=== PATIENT | female | born 1970 | race Asian ===

== ENCOUNTER 2018-04-30 11:11 | Emergency (ER) | payer OTHER ==
[2018-04-30 11:22] VITALS: BP 132/63
[2018-04-30] MEDS ORDERED: TRAMADOL HCL 50 MG TABLET PO ONE (11:36)
--- NOTE | 2018-04-30 11:41 | ER Document Report ---
ED General - General Chief Complaint: Abdominal Pain Stated Complaint: ABDOMEN PAIN Time Seen by Provider: 04/30/18 11:36 Notes: 48-year-old female here with complaints of continued monthly menstrual cramps and the pain that has now been ongoing for the past 7 days. She reports that for the past few years, she has been having severe pain every month when she has her menstrual cycle. This month, she started her menstrual cycle 7 days ago and has been having the pain. She has not tried anything for the pain. Pain is not worse with anything in particular. She does not have any fevers chills nausea vomiting dysuria vaginal discharge frequency hesitancy back/flank pain. She reports that it feels like her typical monthly pain and has been seen by her doctor who told her she had endometriosis. TRAVEL OUTSIDE OF THE [place] IN LAST 30 DAYS: No - Related Data Allergies/Adverse Reactions: No Known Allergies Allergy (Verified 04/30/18 11:37) Past Medical History - Social History Smoking Status: Unknown if Ever Smoked Family History: Reviewed & Not Pertinent Review of Systems - Review of Systems Notes: See history of present illness for pertinent positive review of systems; otherwise all review of systems have been reviewed and are negative Physical Exam - Vital signs Vitals: Temp Pulse Resp BP Pulse Ox 98.3 F 90 16 132/63 H 100 04/30/18 11:20 04/30/18 11:20 04/30/18 11:20 04/30/18 11:20 04/30/18 11:20 - Notes Notes: PHYSICAL EXAMINATION: GENERAL: Well-appearing and in no acute distress. HEAD: Atraumatic, normocephalic. EYES: Pupils equal round and reactive to light, extraocular movements intact, sclera anicteric, conjunctiva are normal. ENT: nares patent, oropharynx clear without exudates. Moist mucous membranes. NECK: Normal range of motion, supple without lymphadenopathy LUNGS: CTAB and equal. No wheezes rales or rhonchi. HEART: Regular rate and rhythm without murmurs ABDOMEN: Soft, minimal suprapubic tenderness. No facial grimacing/wincing upon palpation. No guarding, no rebound or other peritoneal signs EXTREMITIES: Normal range of motion, no pitting edema. No cyanosis. NEUROLOGICAL: Cranial nerves grossly intact. Normal sensory/motor exams. PSYCH: Normal mood, normal affect. SKIN: Warm, Dry, normal turgor, no rashes or lesions noted Course - Re-evaluation Re-evalutation: 04/30/18 11:40 MEDICAL DECISION MAKING: Concern for acute on chronic menstrual pains likely due to endometriosis Pelvic exam deferred as I do not feel it would be of much benefit given the ongoing chronic nature of symptoms Also she reports her symptoms are typical and are unchanged from previous episodes Will dose of tramadol here and prescription for same Patient understands and agrees to the plan of care - Vital Signs Vital signs: Temp Pulse Resp BP Pulse Ox 98.3 F 90 16 132/63 H 100 04/30/18 11:20 04/30/18 11:20 04/30/18 11:20 04/30/18 11:20 04/30/18 11:20 Discharge - Discharge Clinical Impression: Chronic suprapubic pain Condition: Good Disposition: HOME, SELF-CARE Additional Instructions: You were seen in the emergency department at [facility]. Use the prescribed pain medication as needed for your pain. If you were given any sedating medications, such as tramadol, be sure not to operate heavy machinery ( example - driving) and be sure you are not too sedated to walk appropriately. Please followup with your primary [facility]PER[employer] physician in the next few days for further management/evaluation. Please return to the emergency department for worsening of symptoms or any symptom that you deem to be concerning or life- threatening. Thank you for allowing us to be part of your care. Prescriptions: Tramadol HCl 50 mg PO TIDP PRN #10 tablet PRN Reason: Referrals: KILLIAN GONZALEZ, JOB SERVICE CONSULTANT-C [Primary Care Provider] - Follow up in 3-5 days
== END 2018-04-30 11:54 | disposition home or self-care (01) ==
LOC: ER 11:11
DX: G89.29 Other chronic pain (principal); R10.30 Lower abdominal pain, unspecified; N94.6 Dysmenorrhea, unspecified
CPT/HCPCS: 99283

== ENCOUNTER → 2018-06-24 | Outpatient (CLI) | payer OTHER ==
[2018-06-24 15:54] LABS: ABSOLUTE EOSINOPHILS # (AUTO) 0.1 10^3/uL (0.0-0.6); ABSOLUTE LYMPHOCYTES (AUTO) 1.7 10^3/uL (0.5-4.7); ABSOLUTE MONOCYTES (AUTO) 0.4 10^3/uL (0.1-1.4); ABSOLUTE NEUT (AUTO) 4.8 10^3/uL (1.7-8.2); BASOPHILS % (AUTO) 0.2 % (0-2); EOSINOPHILS % (AUTO) 1.9 % (0-6); HEMATOCRIT 38.9 % (36.0-47.0); HEMOGLOBIN 12.4 g/dL (12.0-15.5); MEAN CORPUSCULAR HEMOGLOBIN 23.5 pg (27.0-33.4); MEAN CORPUSCULAR VOLUME 73 fl (80-97); MONOCYTES % (AUTO) 5.6 % (3-13); PLATELET COUNT 340 10^3/uL (150-450); RED CELL DISTRIBUTION WIDTH 21.9 % (11.5-14.0); SEGMENTED NEUTROPHILS % (AUTO) 68.3 % (42-78); TOTAL CELLS COUNTED % (AUTO) 100 %
[2018-06-24 16:16] LABS: BLOOD UREA NITROGEN 13 mg/dL (7-20)
== END ==
LOC: OD 15:12
PROVIDERS: ATTEND Radiology Radiation Oncology
DX: C54.1 Malignant neoplasm of endometrium (principal); C77.5 Secondary and unspecified malignant neoplasm of intrapelvic lymph nodes
CPT/HCPCS: 36415; 82565; 84520; 85025

== ENCOUNTER → 2019-07-18 | Outpatient (CLI) | payer OTHER ==
--- NOTE | 2019-07-18 16:12 | WOMENS IMAGING REPORT ---
EXAM DESCRIPTION: BILAT SCREENING MAMMO W/CAD COMPLETED DATE/TIME: 07/18/2019 9:07 am REASON FOR STUDY: Z12.31 ENCOUNTER FOR SCREENING MAMMOGRAM FOR MALIGNANT NEOPLASM OF BREAST Z12.31 ENCNTR SCREEN MAMMOGRAM FOR MALIGNANT NEOPLASM OF MANDY COMPARISON: 2013, 2015 EXAM PARAMETERS: Standard craniocaudal and mediolateral oblique views of each breast recorded using digital acquisition. Read with the assistance of CAD. .[facility] - [employer] Dispatcher Radio Version 9.2 LIMITATIONS: None. FINDINGS: Findings present which are benign by mammographic criteria. No suspicious masses, calcifi cations or architectural distortion. Pertinent benign findings: Stable bilateral breast parenchymal and skin calcifications Benign mammographic findings may include one or more of the following: Smooth masses, popcorn/rim/co arse calcifications, asymmetries, post-procedure changes, and lesions with long-standing stability. IMPRESSION: BENIGN MAMMOGRAPHIC FINDINGS. BIRADS 2 BREAST DENSITY: c. The breasts are heterogeneously dense, which may obscure small masses. BIRAD: ASSESSMENT: 2 BENIGN FINDING(S) RECOMMENDATION: ROUTINE SCREENING Please continue yearly bilateral screening mammography/tomosynthesis in July 2020 Consider bilateral screening tomosynthesis given heterogeneously dense tissue bilaterally COMMENT: The patient has been notified of the results by letter per SA requirements. Additional no tification policies are in place for contacting patient with suspicious or incomplete findings. Quality ID #[id number]: The [employer] recommends an annual screening mammogram for women aged 40 years or over. This facility utilizes a reminder system to ensure that all patients receive reminder letters, and/or direct phone calls for appointments. This includes reminders for routine scr eening mammograms, diagnostic mammograms, or other Breast Imaging Interventions when appropriate. Th is patient will be placed in the appropriate reminder system. TECHNICAL DOCUMENTATION: FINDING NUMBER: (1) ASSESSMENT: (1) JOB ID: [id number] [employer]- All Rights Reserved Reading location - IP/workstation name: [email or web address]
== END ==
LOC: WI 08:48
PROVIDERS: ATTEND Physician Assistant
DX: Z12.31 Encounter for screening mammogram for malignant neoplasm of breast (principal)
CPT/HCPCS: 77067

== ENCOUNTER 2020-06-13 05:31 | Inpatient (IN) | payer OTHER ==
[2020-06-10 12:04] LABS: ABSOLUTE EOSINOPHILS # (AUTO) 0.1 10^3/uL (0.0-0.6); ABSOLUTE LYMPHOCYTES (AUTO) 1.6 10^3/uL (0.5-4.7); ABSOLUTE MONOCYTES (AUTO) 0.4 10^3/uL (0.1-1.4); ABSOLUTE NEUT (AUTO) 5.8 10^3/uL (1.7-8.2); BASOPHILS % (AUTO) 0.2 % (0-2); EOSINOPHILS % (AUTO) 1.5 % (0-6); HEMATOCRIT 38.1 % (36.0-47.0); HEMOGLOBIN 12.7 g/dL (12.0-15.5); LYMPHOCYTES % (AUTO) 19.9 % (13-45); MEAN CORPUSCULAR HEMOGLOBIN 26.6 pg (27.0-33.4); MEAN CORPUSCULAR HGB CONC 33.3 g/dL (32.0-36.0); MEAN CORPUSCULAR VOLUME 80 fl (80-97); MONOCYTES % (AUTO) 4.6 % (3-13); PLATELET COUNT 268 10^3/uL (150-450); RED BLOOD COUNT 4.78 10^6/uL (3.72-5.28); RED CELL DISTRIBUTION WIDTH 14.5 % (11.5-14.0); SEGMENTED NEUTROPHILS % (AUTO) 73.8 % (42-78); TOTAL CELLS COUNTED % (AUTO) 100 %; WHITE BLOOD COUNT 7.8 10^3/uL (4.0-10.5)
[2020-06-10 12:23] LABS: ANION GAP 12 (5-19); BLOOD UREA NITROGEN 17 mg/dL (7-20); CALCIUM 9.8 mg/dL (8.4-10.2); CARBON DIOXIDE 27 mmol/L (22-30); CHLORIDE 100 mmol/L (98-107); GLUCOSE 107 mg/dL (75-110); POTASSIUM 3.8 mmol/L (3.6-5.0)
--- NOTE | 2020-06-10 19:34 | EKG REPORT ---
SEVERITY:- OTHERWISE NORMAL ECG - SINUS RHYTHM VENTRICULAR PREMATURE COMPLEX : Confirmed by: Madelin Castellano MD 10-Jun-2020 19:33:32
[~2020-06-13 05:31] MED LIST: CEFAZOLIN 2 GM/D5W RTU 2 GM/50 ML RTUPB IV ONE; CEFAZOLIN 2 GM/D5W RTU 2 GM/50 ML RTUPB IV PRN; LACTATED RINGERS 1000 ML IV PRN; LIDOCAINE 0.5% INJ-PF (5 MG/ML) 50 ML SDV SUBCUT PRN; METRONIDAZOLE 500 MG/NS RTU 500 MG/100 ML RTUPB IV ONE; METRONIDAZOLE 500 MG/NS RTU 500 MG/100 ML RTUPB IV PRN
[2020-06-13] MEDS ORDERED: BUPIVACAINE INJ/PF LIPOSOME/PF 266 MG/20 ML SDV ONE (07:08)
[2020-06-13] MEDS ORDERED: MIDAZOLAM 2 MG/2 ML INJ ONE (07:12)
[2020-06-13] MEDS ORDERED: DEXAMETHASONE SOD PHOSPHATE INJ 4 MG/1 ML VIAL ONE (07:12)
[2020-06-13] MEDS ORDERED: PROPOFOL INJ 200 MG/20 ML VIAL IV ONE (07:12)
[2020-06-13] MEDS ORDERED: ONDANSETRON HCL INJ/PF 4 MG/2 ML SDV ONE (07:12)
[2020-06-13] MEDS ORDERED: HYDROMORPHONE HCL INJ/PF 2 MG/ML AMPULE ONE (07:12)
[2020-06-13] MEDS ORDERED: LIDOCAINE 2% INJ-PF (20 MG/ML) 10 ML AMPUL ONE (07:12)
[2020-06-13] MEDS ORDERED: DEXMEDETOMIDINE INJ 80 MCG/20 ML VIAL IV ONE (07:12)
[2020-06-13] MEDS ORDERED: FENTANYL CITRATE INJ/PF 100 MCG/2 ML AMPUL ONE ×2 (07:12→10:45)
[2020-06-13] MEDS ORDERED: ROPIVACAINE HCL 0.5% INJ/PF (5 MG/1 ML) 30 ML SDV ONE (07:43)
[2020-06-13] MEDS ORDERED: MORPHINE SULFATE 10 MG/ML INJ IV PRN (08:07)
[2020-06-13] MEDS ORDERED: MEPERIDINE HCL/PF INJ 25 MG/1 ML DISP.SYRIN IV PRN (08:07)
[2020-06-13] MEDS ORDERED: OXYCODONE-ACETAMINOPHEN 5-325 MG TABLET PO PRN ×2 (08:07)
[2020-06-13] MEDS ORDERED: DIPHENHYDRAMINE HCL 50 MG/ML VIAL IV PRN (08:07)
[2020-06-13] MEDS ORDERED: FENTANYL CITRATE INJ/PF 100 MCG/2 ML AMPUL IV PRN ×3 (08:07)
[2020-06-13] MEDS ORDERED: PROMETHAZINE HCL INJ 25 MG/1 ML VIAL IV PRN ×2 (08:07)
[2020-06-13] MEDS ORDERED: ONDANSETRON HCL INJ/PF 4 MG/2 ML SDV IV PRN ×2 (10:09→15:30)
[2020-06-13] MEDS ORDERED: DEXTROSE 50%-WATER 25 GM/50 ML DISP.SYRIN IV PRN ×2 (10:09)
[2020-06-13] MEDS ORDERED: GLUCAGON,HUMAN RECOMB 1 MG INJ SUBCUT PRN (10:09)
[2020-06-13] MEDS ORDERED: DEXTROSE 40% GEL 15 GM TUBE PO PRN ×2 (10:09)
--- NOTE | 2020-06-13 10:09 | Operative Report ---
Nonrecallable Operative Report DATE OF SURGERY: 06/13/20 PREOPERATIVE DIAGNOSIS: Colonic polyp POSTOPERATIVE DIAGNOSIS: Colonic polyp OPERATION: Extended right hemicolectomy SURGEON: HALI NAIR CRYPTOGRAPHIC TECHNICIAN: GREG HAWKINS ANESTHESIA: GA TISSUE REMOVED OR ALTERED: Right and transverse colon COMPLICATIONS: None ESTIMATED BLOOD LOSS: 100 cc INTRAOPERATIVE FINDINGS: See note PROCEDURE: Patient was brought to the operating awake alert stable condition placed on the operating table supine position induced under general anesthesia intubated. After appropriate timeout site verification procedure commenced. Abdomen was prepped draped usual sterile fashion for the procedure. A midline incision was used from just above the umbilicus to just below it with a 10 blade dissection carried down through subcutaneous tissue with Bovie cautery the midline fascia entered. Retractors were placed. The right colon was then mobilized along the white line of Toldt with Bovie cautery to identify the hepatic flexure and which was taken down with sharp dissection using Bovie cautery. A palpable polyp was noted in the mid to distal transverse colon and it was also tattooed. The splenic flexure was freed up and the descending colon was freed up with Bovie cautery along the white line of Toldt. Once we completely mobilized the splenic flexure we allowed the anatomy to be visualized and appeared that the polyp was just to the left of the middle colic vessels. We therefore then divided the distal terminal ileum with 1 firing of the SERGIO stapler with a blue load and then divided the mesentery of the colon with the LigaSure device all the way around the right colic vessels and the middle colic vessel was divided the distal transverse colon was preserved for the anastomosis it was divided with a Endo SERGIO stapler with a blue load. We then performed an ileocolostomy with sutures the outer layer being 3-0 silk in a running inner layer 3-0 Vicryl. We closed the mesenteric defect with a running 20V lock. The abdominal cavity was copiously irrigated normal saline suctioned dry midline fascia was closed with running double looped 0 PDS suture skin was closed with standard skin clips. Sterile dressing applied. Estimated blood loss was 100 cc. Sponge needle counts were correct x2. PHIL Rainey was present for the entire procedure help with wound retraction and wound closure.
[2020-06-13] MEDS: POTASSI CL 20 MEQ/D5-1/2NS 1L 1,000 ML IV PRN (12:08)
[2020-06-13] MEDS ORDERED: PHENYLEPHRINE HCL INJ/PF 10 MG/1 ML SDV ONE (12:36)
[2020-06-13] MEDS ORDERED: GLYCOPYRROLATE 1 MG/5 ML VIAL ONE (12:36)
[2020-06-13] MEDS ORDERED: KETOROLAC TROMETHAMINE 60 MG/2 ML SDV ONE (12:36)
[2020-06-13] MEDS ORDERED: NEOSTIGMINE METHYLSULFATE 10 MG/10 ML VIAL ONE (12:36)
[2020-06-13] MEDS: METRONIDAZOLE 500 MG/NS RTU 500 MG/100 ML RTUPB IV SCH ×2 (13:07→21:33)
[2020-06-13] MEDS: CEFAZOLIN 1 GM/D5W RTU 1 GM/50 ML RTUPB IV SCH (17:13)
[2020-06-13] MEDS: MORPHINE SULFATE 10 MG/ML INJ IV PRN ×2 (17:20→21:34)
[2020-06-13] MEDS ORDERED: ACETAMINOPHEN 1,000 MG/100 ML RTUPB IV SCH (18:00)
[2020-06-13] MEDS: FAMOTIDINE INJ/PF 20 MG/2 ML SDV IV SCH (21:33)
[2020-06-13] MEDS ORDERED: FAMOTIDINE INJ/PF 20 MG/2 ML SDV IV SCH (22:00)
[2020-06-14] MEDS: MORPHINE SULFATE 10 MG/ML INJ IV PRN ×5 (02:25→21:20)
[2020-06-14] MEDS: CEFAZOLIN 1 GM/D5W RTU 1 GM/50 ML RTUPB IV SCH (02:26)
[2020-06-14] MEDS: POTASSI CL 20 MEQ/D5-1/2NS 1L 1,000 ML IV PRN ×3 (02:43→22:47)
[2020-06-14 05:30] LABS: ABSOLUTE LYMPHOCYTES (AUTO) 1.2 10^3/uL (0.5-4.7); ABSOLUTE MONOCYTES (AUTO) 0.6 10^3/uL (0.1-1.4); ABSOLUTE NEUT (AUTO) 7.6 10^3/uL (1.7-8.2); BASOPHILS % (AUTO) 0.1 % (0-2); HEMATOCRIT 34.1 % (36.0-47.0); HEMOGLOBIN 11.6 g/dL (12.0-15.5); LYMPHOCYTES % (AUTO) 12.6 % (13-45); MEAN CORPUSCULAR HEMOGLOBIN 26.9 pg (27.0-33.4); MEAN CORPUSCULAR HGB CONC 33.9 g/dL (32.0-36.0); MEAN CORPUSCULAR VOLUME 79 fl (80-97); MONOCYTES % (AUTO) 6.8 % (3-13); PLATELET COUNT 228 10^3/uL (150-450); RED CELL DISTRIBUTION WIDTH 14.4 % (11.5-14.0); SEGMENTED NEUTROPHILS % (AUTO) 80.5 % (42-78); TOTAL CELLS COUNTED % (AUTO) 100 %; WHITE BLOOD COUNT 9.4 10^3/uL (4.0-10.5)
[2020-06-14 05:46] LABS: ANION GAP 7 (5-19); BLOOD UREA NITROGEN 11 mg/dL (7-20); CALCIUM 8.4 mg/dL (8.4-10.2); CARBON DIOXIDE 28 mmol/L (22-30); CHLORIDE 102 mmol/L (98-107); GLUCOSE 183 mg/dL (75-110); POTASSIUM 4.2 mmol/L (3.6-5.0)
[2020-06-14] MEDS: METRONIDAZOLE 500 MG/NS RTU 500 MG/100 ML RTUPB IV SCH (06:23)
--- NOTE | 2020-06-14 08:05 | PDOC PROGRESS REPORT ---
Subjective Progress Note for:: 06/14/20 Subjective:: It was okay minimal pain Reason For Visit: C80.1 MALIGNANT (PRIMARY) NEOPLASM, UNSPECIFIED Physical Exam Vital Signs: Temp Pulse Resp BP Pulse Ox 98.9 F 72 16 112/67 96 06/14/20 04:22 06/14/20 04:22 06/14/20 04:22 06/14/20 04:22 06/14/20 04:22 Intake & Output 06/13/20 06/14/20 06/15/20 06:59 06:59 06:59 Intake Total 0 3275 Output Total 500 Balance 0 2775 Weight 76.3 kg General appearance: PRESENT: no acute distress Head exam: PRESENT: normocephalic Eye exam: PRESENT: EOMI Ear exam: PRESENT: normal external ear exam Mouth exam: PRESENT: moist Teeth exam: PRESENT: poor dentation Neck exam: PRESENT: full ROM Respiratory exam: PRESENT: clear to auscultation louis Cardiovascular exam: PRESENT: RRR Pulses: PRESENT: normal femoral pulses Vascular exam: PRESENT: normal capillary refill Breast: PRESENT: Normal GI/Abdominal exam: PRESENT: soft - Abdomen soft nontender dressings in place wound is clean and dry Rectal exam: PRESENT: deferred Gentrourinary exam: PRESENT: indwelling catheter Extremities exam: PRESENT: full ROM Musculoskeletal exam: PRESENT: full ROM Neurological exam: PRESENT: alert, awake, oriented to person, oriented to place, oriented to time Psychiatric exam: PRESENT: appropriate affect Skin exam: PRESENT: dry Results Laboratory Results: 06/14/20 05:07 06/14/20 05:07 06/14/20 06/14/20 05:07 05:07 WBC 9.4 RBC 4.30 Hgb 11.6 L Hct 34.1 L MCV 79 L MCH 26.9 L MCHC 33.9 RDW 14.4 H Plt Count 228 Seg Neutrophils % 80.5 H Sodium 136.7 L Potassium 4.2 Chloride 102 Carbon Dioxide 28 Anion Gap 7 BUN 11 Creatinine 0.58 Est GFR ( Amer) > 60 Glucose 183 H Calcium 8.4 Assessment & Plan - Time Anticipated Discharge Disposition: Home, Self Care Anticipated Discharge Timeframe: within 72 hours - Plan Summary Plan Summary: Patient is postop day 1 status post extended right hemicolectomy for colonic polyps. Patient is doing well this morning has minimal pain her wound is clean and dry she has been taking ice chips overnight. We will remove Munson catheter today encourage ambulation out of bed. We are awaiting return of bowel function she will remain on ice chips after she starts having evidence of bowel function. Dr. Magaña will see the patient in my absence tomorrow and Wednesday.
[2020-06-14] MEDS: FAMOTIDINE INJ/PF 20 MG/2 ML SDV IV SCH ×2 (09:28→21:20)
[2020-06-15] MEDS: POTASSI CL 20 MEQ/D5-1/2NS 1L 1,000 ML IV PRN ×2 (05:15→13:53)
[2020-06-15] MEDS: MORPHINE SULFATE 10 MG/ML INJ IV PRN ×3 (05:15→12:56)
[2020-06-15] MEDS: FAMOTIDINE INJ/PF 20 MG/2 ML SDV IV SCH ×2 (09:48→21:00)
--- NOTE | 2020-06-15 09:54 | PDOC PROGRESS REPORT ---
Subjective Progress Note for:: 06/15/20 Reason For Visit: C80.1 MALIGNANT (PRIMARY) NEOPLASM, UNSPECIFIED Patient doing well, ambulated, tolerated clear liquids. Pain controlled. Physical Exam Vital Signs: Temp Pulse Resp BP Pulse Ox 98.9 F 90 18 140/69 H 97 06/15/20 07:40 06/15/20 07:40 06/15/20 07:40 06/15/20 07:40 06/15/20 07:40 Intake & Output 06/14/20 06/15/20 06/16/20 06:59 06:59 06:59 Intake Total 3275 3160 Output Total 500 Balance 2775 3160 Weight 76.3 kg 72.1 kg General appearance: PRESENT: no acute distress GI/Abdominal exam: PRESENT: other - Abdomen is soft; operative dressing removed; yony intact; appropriate degree of tenderness, no distention Results Laboratory Results: 06/14/20 05:07 06/14/20 05:07 Assessment & Plan - Diagnosis (1) Status post partial resection of colon Is this a current diagnosis for this admission?: Yes Plan: Impression: Postoperative day 2 status post colon resection by Dr. Kd Vinson for large polyp of the distal transverse colon, doing well, tolerating clear liquids, pain control. Recommendations: 1. Increase pulmonary toilet, incentive spirometer provided; shower 2. We will provide Toradol as needed pain 3. Consider increasing diet, home next 24 to 36 hours. - Time Time Spent: 30 to 50 Minutes Medications reviewed and adjusted accordingly: Yes Anticipated Discharge Disposition: Home, Self Care Anticipated Discharge Timeframe: within 48 hours
[2020-06-15] MEDS: DOCUSATE SODIUM 100 MG CAPSULE PO SCH ×2 (11:04→17:10)
[2020-06-15] MEDS: KETOROLAC TROMETHAMINE INJ/PF 30 MG/1 ML SDV IV PRN (21:00)
[2020-06-16] MEDS: KETOROLAC TROMETHAMINE INJ/PF 30 MG/1 ML SDV IV PRN (07:41)
[2020-06-16] MEDS ORDERED: ACETAMINOPHEN WITH CODEINE #3 TABLET PO PRN (09:16)
[2020-06-16] MEDS: DOCUSATE SODIUM 100 MG CAPSULE PO SCH (10:15)
[2020-06-16] MEDS: FAMOTIDINE INJ/PF 20 MG/2 ML SDV IV SCH (10:15)
--- NOTE | 2020-06-16 11:56 | PDOC PROGRESS REPORT ---
Subjective Progress Note for:: 06/16/20 Reason For Visit: C80.1 MALIGNANT (PRIMARY) NEOPLASM, UNSPECIFIED Patient doing well, got up, showered, tolerating clear liquids. Physical Exam Vital Signs: Temp Pulse Resp BP Pulse Ox 97.9 F 91 18 155/81 H 98 06/16/20 08:38 06/16/20 08:00 06/16/20 08:00 06/16/20 08:00 06/16/20 08:00 Intake & Output 06/15/20 06/16/20 06/17/20 06:59 06:59 06:59 Intake Total 3160 2240 Balance 3160 2240 Weight 72.1 kg 72.5 kg General appearance: PRESENT: no acute distress GI/Abdominal exam: PRESENT: other - Abdomen soft, nontender no peritoneal signs no rigidity. Jaime intact. Results Laboratory Results: 06/14/20 05:07 06/14/20 05:07 Assessment & Plan - Diagnosis (1) Status post partial resection of colon Is this a current diagnosis for this admission?: Yes Plan: Impression: Postoperative day 3 patient doing well, no complication, tolerating clear liquid, good pain control. Plan: 1. Advance to full liquids 2. Switch to p.o. Tylenol 3 3. Anticipate discharge home later today. The above discussed with patient and nursing staff. - Time Time Spent: 30 to 50 Minutes Critical Time spent with patient: Less than 15 minutes Medications reviewed and adjusted accordingly: Yes Anticipated Discharge Disposition: Home, Self Care Anticipated Discharge Timeframe: within 24 hours
--- NOTE | 2020-06-16 13:28 | PDOC DISCHARGE SUMMARY ---
General - Admit/Disc Date/PCP Admission Date/Primary Care Provider: 06/13/20 05:31 NADYA CHESTER PA-C Discharge Date: 06/16/20 - Discharge Diagnosis Final Diagnosis: Large colon polyp distal transverse - Assessment Summary: Patient is a 50-year-old [place] female who on colonoscopy was found to have a distal transverse colon polyp too large to be removed endoscopically. The patient was evaluated by Dr. Vinson, admitted to ambulatory surgery at [facility] where she underwent interval open extended right hemicolectomy June 13. She tolerated the procedure well. Her diet was advanced and she tolerated this without difficulty. Her wound showed evidence of satisfactory healing. There were no drains. She voided without difficulty and had adequate pain control. By the afternoon of the third postoperative day she was felt to have received maximum benefit from the hospitalization was discharged home. As it is Wednesday, patient will await office opening on Wednesday to make an appointment to follow-up with Dr. Vinson in 1 week to 10 days. She will take Toradol as needed pain for which a prescription has been provided. She may shower, and drive when she feels capable. She is to avoid heavy lifting pushing pulling or straining - Additional Information Resuscitation Status: Full Code Discharge Diet: As Tolerated Discharge Activity: No Lifting/Push/Pulling - No excessive pushing pulling or lifting, Other Referrals: [facility] [Provider Group] - 06/25/20 9:30 am Home Medications: Glipizide [Glipizide Xl] 2.5 mg PO BID 06/10/20 Metformin HCl 1,000 mg PO BID 06/10/20 Simvastatin 20 mg PO QPM 06/10/20 Cholecalciferol (Vitamin D3) [Vitamin D3] 50 mcg PO LEONE 06/13/20 Losartan/Hydrochlorothiazide [Losartan-Hctz 50-12.5 mg Tab] 1 each PO DAILY 06/13/20 History of Present Illiness History of Present Illness: BLAIR JAMES is a 50 year old female Physical Exam Vital Signs: Temp Pulse Resp BP Pulse Ox 97.9 F 91 18 155/81 H 98 06/16/20 08:38 06/16/20 08:00 06/16/20 08:00 06/16/20 08:00 06/16/20 08:00 Intake & Output 06/15/20 06/16/20 06/17/20 06:59 06:59 06:59 Intake Total 3160 2240 Balance 3160 2240 Weight 72.1 kg 72.5 kg Results Laboratory Results: WBC 9.4 10^3/uL (4.0-10.5) 06/14/20 05:07 RBC 4.30 10^6/uL (3.72-5.28) 06/14/20 05:07 Hgb 11.6 g/dL (12.0-15.5) L 06/14/20 05:07 Hct 34.1 % (36.0-47.0) L 06/14/20 05:07 MCV 79 fl (80-97) L 06/14/20 05:07 MCH 26.9 pg (27.0-33.4) L 06/14/20 05:07 MCHC 33.9 g/dL (32.0-36.0) 06/14/20 05:07 RDW 14.4 % (11.5-14.0) H 06/14/20 05:07 Plt Count 228 10^3/uL (150-450) 06/14/20 05:07 Lymph % (Auto) 12.6 % (13-45) L 06/14/20 05:07 [place] % (Auto) 6.8 % (3-13) 06/14/20 05:07 Eos % (Auto) 0.0 % (0-6) 06/14/20 05:07 Baso % (Auto) 0.1 % (0-2) 06/14/20 05:07 Absolute Neuts (auto) 7.6 10^3/uL (1.7-8.2) 06/14/20 05:07 Absolute Lymphs (auto) 1.2 10^3/uL (0.5-4.7) 06/14/20 05:07 Absolute Monos (auto) 0.6 10^3/uL (0.1-1.4) 06/14/20 05:07 Absolute Eos (auto) 0.0 10^3/uL (0.0-0.6) 06/14/20 05:07 Absolute Basos (auto) 0.0 10^3/uL (0.0-0.2) 06/14/20 05:07 Seg Neutrophils % 80.5 % (42-78) H 06/14/20 05:07 Sodium 136.7 mmol/L (137-145) L 06/14/20 05:07 Potassium 4.2 mmol/L (3.6-5.0) 06/14/20 05:07 Chloride 102 mmol/L (98-107) 06/14/20 05:07 Carbon Dioxide 28 mmol/L (22-30) 06/14/20 05:07 Anion Gap 7 (5-19) 06/14/20 05:07 BUN 11 mg/dL (7-20) 06/14/20 05:07 Creatinine 0.58 mg/dL (0.52-1.25) 06/14/20 05:07 Est GFR ( Amer) > 60 (>60) 06/14/20 05:07 Est GFR (MDRD) Non-Af > 60 (>60) 06/14/20 05:07 Glucose 183 mg/dL (75-110) H 06/14/20 05:07 POC Glucose 133 mg/dL (70-110) H 06/13/20 06:04 Calcium 8.4 mg/dL (8.4-10.2) 06/14/20 05:07 COVID-19 Source NASOPHARYNGEAL 06/10/20 11:30 COVID-19 (MEGAN) NOT DETECTED 06/10/20 11:30
[2020-06-16 14:24] VITALS: BP 116/80
== END 2020-06-16 14:32 | disposition home or self-care (01) | DRG 331 ==
LOC: INOR 05:31 → 4S 11:29
PROVIDERS: ADMIT Surgery; ATTEND Surgery
PROC: 0DTF0ZZ Resection of Right Large Intestine, Open Approach (ICD-10-PCS; principal; 2020-06-13 07:30)
DX: K63.5 Polyp of colon (principal); I10 Essential (primary) hypertension; E11.9 Type 2 diabetes mellitus without complications; E55.9 Vitamin D deficiency, unspecified; E78.2 Mixed hyperlipidemia; D50.9 Iron deficiency anemia, unspecified; Z80.0 Family history of malignant neoplasm of digestive organs; Z85.42 Personal history of malignant neoplasm of other parts of uterus; Z79.84 Long term (current) use of oral hypoglycemic drugs; Z79.899 Other long term (current) drug therapy; Z90.710 Acquired absence of both cervix and uterus; Z03.818 Encounter for observation for suspected exposure to other biological agents ruled out
CPT/HCPCS: 36415; 64486; 76942; 790; 80048; 82962; 85025; 87635; 88309; 93005; 93010; 94799; C1758; C9290; C9803; J0690; J1100; J1170; J1885; J2250; J2270; J2370; J2405; J2704; J2710; J2795; J3010; J3480; J3490; S0028

== ENCOUNTER 2020-07-24 19:27 | Emergency (ER) | payer OTHER ==
--- NOTE | 2020-07-24 20:13 | ER Document Report ---
ED Medical Screen (RME) - General Chief Complaint: Post Surgical Pain Stated Complaint: POST SURGICAL PAIN Primary Care Provider: NADYA CHESTER PA-C [Primary Care Provider] - Follow up as needed Notes: Patient is a 50-year-old female who recently underwent partial colectomy due to a mass found on colonoscopy by Dr. Davis in May who presents today with a chief complaint of pain in the abdomen and back for the past 4 days associated with weakness, fatigue and decreased appetite. She just recently saw her surgeon a couple weeks ago. Significant other reports that she is had a decreased appetite since that visit when they remove the yony from her abdomen. She denies any fever, nausea vomiting or diarrhea. Denies any drainage or redness from the surgical site. States she is due to see the surgeon on Wednesday. I have treated and performed a rapid initial assessment of this patient. A comprehensive ED assessment and evaluation of the patient, analysis of test results and completion of medical decision making process will be conducted by additional ED providers. PHYSICAL EXAMINATION: GENERAL: Well-appearing, well-nourished and in no acute distress. A&Ox4. Answers questions appropriately. TRAVEL OUTSIDE OF THE [place] IN LAST 30 DAYS: No - Related Data Allergies/Adverse Reactions: No Known Allergies Allergy (Verified 06/13/20 05:40) Past Medical History - Past Medical History Cardiac Medical History: Reports: Hx Hypercholesterolemia, Hx Hypertension Denies: Hx Atrial Fibrillation, Hx Congestive Heart Failure, Hx Coronary Artery Disease, Hx Heart Attack, Hx Peripheral Vascular Disease, Hx Heart Murmur Endocrine Medical History: Denies: Hx Graves' Disease, Hx Hyperthyroidism, Hx Hypothyroidism Renal/ Medical History: Denies: Hx Ovarian Cysts, Hx Peritoneal Dialysis, Hx Pelvic Inflammatory Disease Malignancy Medical History: Denies: Hx Breast Cancer, Hx Cervical Cancer, Hx Ovarian Cancer GI Medical History: Denies: Hx Crohn's Disease, Hx Gastroesophageal Reflux Disease, Hx Hiatal Hernia, Hx Irritable Bowel, Hx Liver Failure, Hx Pancreatitis, Hx Ulcer Musculoskeltal Medical History: Reports Hx Arthritis - GENERALIZED, Denies Hx Fibromyalgia, Denies Hx Muscular Dystrophy, Denies Hx Systemic Lupus Erythematosus Traumatic Medical History: Denies: Hx Fractures Past Surgical History: Reports: Hx Hysterectomy, Hx Tubal Ligation. Denies: Hx Appendectomy, Hx Bowel Surgery, Hx Section, Hx Cholecystectomy, Hx Colostomy, Hx Coronary Artery Bypass Graft, Hx Gastric Bypass Surgery, Hx Herniorrhaphy, Hx Mastectomy, Hx Pacemaker, Hx Tonsillectomy Physical Exam - Vital signs Vitals: Temp Pulse Resp BP Pulse Ox 99.1 F 107 H 16 99/70 L 100 07/24/20 19:58 07/24/20 19:58 07/24/20 19:58 07/24/20 19:58 07/24/20 19:58 Course - Vital Signs Vital signs: Temp Pulse Resp BP Pulse Ox 99.1 F 107 H 16 99/70 L 100 07/24/20 19:58 07/24/20 19:58 07/24/20 19:58 07/24/20 19:58 07/24/20 19:58 Doctor's Discharge - Discharge Referrals: NADYA CHESTER PA-C [Primary Care Provider] - Follow up as needed
[2020-07-24 21:14] LABS: ABSOLUTE LYMPHOCYTES (AUTO) 0.6 10^3/uL (0.5-4.7); ABSOLUTE MONOCYTES (AUTO) 0.2 10^3/uL (0.1-1.4); ABSOLUTE NEUT (AUTO) 1.6 10^3/uL (1.7-8.2); BASOPHILS % (AUTO) 0.2 % (0-2); HEMATOCRIT 34.9 % (36.0-47.0); HEMOGLOBIN 11.9 g/dL (12.0-15.5); LYMPHOCYTES % (AUTO) 23.8 % (13-45); MEAN CORPUSCULAR HEMOGLOBIN 25.8 pg (27.0-33.4); MEAN CORPUSCULAR HGB CONC 34.2 g/dL (32.0-36.0); MEAN CORPUSCULAR VOLUME 76 fl (80-97); MONOCYTES % (AUTO) 9.6 % (3-13); PLATELET COUNT 227 10^3/uL (150-450); RED BLOOD COUNT 4.62 10^6/uL (3.72-5.28); RED CELL DISTRIBUTION WIDTH 14.3 % (11.5-14.0); SEGMENTED NEUTROPHILS % (AUTO) 66.4 % (42-78); TOTAL CELLS COUNTED % (AUTO) 100 %; WHITE BLOOD COUNT 2.5 10^3/uL (4.0-10.5)
[2020-07-24 21:19] LABS: APPEARANCE,URINE SLIGHTLY-CLOUDY; BILIRUBIN,URINE NEGATIVE (NEGATIVE); COLOR,URINE YELLOW; GLUCOSE, URINE NEGATIVE (NEGATIVE); KETONES,URINE NEGATIVE (NEGATIVE); PROTEIN,URINE NEGATIVE (NEGATIVE); URINE SPECIFIC GRAVITY 1.012; UROBILINOGEN,URINE NEGATIVE mg/dL (<2.0)
[2020-07-24 21:38] LABS: ALBUMIN 4.7 g/dL (3.5-5.0); ALKALINE PHOSPHATASE 68 U/L (38-126); ANION GAP 15 (5-19); ASPARTATE AMINO TRANSFERASE 43 U/L (14-36); BILIRUBIN,DIRECT 0.4 mg/dL (0.0-0.4); BILIRUBIN,TOTAL 0.8 mg/dL (0.2-1.3); BLOOD UREA NITROGEN 22 mg/dL (7-20); CALCIUM 9.3 mg/dL (8.4-10.2); CARBON DIOXIDE 29 mmol/L (22-30); CHLORIDE 87 mmol/L (98-107); GLUCOSE 138 mg/dL (75-110); POTASSIUM 3.6 mmol/L (3.6-5.0); TOTAL PROTEIN 8.2 g/dL (6.3-8.2)
--- NOTE | 2020-07-25 01:23 | ER Document Report ---
ED General - General Chief Complaint: Post Surgical Pain Stated Complaint: POST SURGICAL PAIN Time Seen by Provider: 07/25/20 01:22 Primary Care Provider: NADYA CHESTER PA-C [Primary Care Provider] - Follow up as needed Mode of Arrival: Ambulatory Information source: Patient Notes: ED Medical Screen (Tomy gonzalez) - General Chief Complaint: Post Surgical Pain Stated Complaint: POST SURGICAL PAIN Primary Care Provider: NADYA CHESTER PA-C [Primary Care Provider] - Follow up as needed Notes: Patient is a 50-year-old female who recently underwent partial colectomy due to a mass found on colonoscopy by Dr. Davis in May who presents today with a chief complaint of pain in the abdomen and back for the past 4 days associated with weakness, fatigue and decreased appetite. She just recently saw her surgeon a couple weeks ago. Significant other reports that she is had a decreased appetite since that visit when they remove the yony from her abdomen. She denies any fever, nausea vomiting or diarrhea. Denies any drainage or redness from the surgical site. States she is due to see the surgeon on Wednesday. I have treated and performed a rapid initial assessment of this patient. A comprehensive ED assessment and evaluation of the patient, analysis of test results and completion of medical decision making process will be conducted by additional ED providers. PHYSICAL EXAMINATION: GENERAL: Well-appearing, well-nourished and in no acute distress. A&Ox4. Answers questions appropriately. TRAVEL OUTSIDE OF THE [place] IN LAST 30 DAYS: No MY NOTES 50 year old [place] descent female arrives with her with chief complaint of diffuse epigastric pain bilateral SI pain bilateral posterior shoulder pain headaches myalgias mild cough is nonproductive. Tomy is ordered a CBC which had a lowered white blood cell count. Her urine had no obvious UTI. She denies any UTI symptoms. Patient does admit to having diarrhea that is mucousy. C. difficile test was ordered. Also CT scan is pending as ordered per Tomy in triage. Patient denies any chemotherapy or radiation therapy. TRAVEL OUTSIDE OF THE [place] IN LAST 30 DAYS: No - HPI Onset: Last week Onset/Duration: Sudden, Persistent, Worse Quality of pain: Achy Severity: Mild Pain Level: 2 Associated symptoms: Body/muscle aches, Fever, Headache, Weakness Exacerbated by: Movement Similar symptoms previously: No Recently seen / treated by doctor: No - Related Data Allergies/Adverse Reactions: No Known Allergies Allergy (Verified 06/13/20 05:40) Past Medical History - Social History Smoking Status: Former Smoker Family History: Reviewed & Not Pertinent - Past Medical History Cardiac Medical History: Reports: Hx Hypercholesterolemia, Hx Hypertension Denies: Hx Atrial Fibrillation, Hx Congestive Heart Failure, Hx Coronary Artery Disease, Hx Heart Attack, Hx Peripheral Vascular Disease, Hx Heart Murmur Endocrine Medical History: Denies: Hx Graves' Disease, Hx Hyperthyroidism, Hx Hypothyroidism Renal/ Medical History: Denies: Hx Ovarian Cysts, Hx Peritoneal Dialysis, Hx Pelvic Inflammatory Disease Malignancy Medical History: Denies: Hx Breast Cancer, Hx Cervical Cancer, Hx Ovarian Cancer GI Medical History: Denies: Hx Crohn's Disease, Hx Gastroesophageal Reflux Disease, Hx Hiatal Hernia, Hx Irritable Bowel, Hx Liver Failure, Hx Pancreatitis, Hx Ulcer Musculoskeletal Medical History: Reports Hx Arthritis - GENERALIZED, Denies Hx Fibromyalgia, Denies Hx Muscular Dystrophy, Denies Hx Systemic Lupus Erythematosus Traumatic Medical History: Denies: Hx Fractures Past Surgical History: Reports: Hx Hysterectomy, Hx Tubal Ligation. Denies: Hx Appendectomy, Hx Bowel Surgery, Hx Section, Hx Cholecystectomy, Hx Colostomy, Hx Coronary Artery Bypass Graft, Hx Gastric Bypass Surgery, Hx Herniorrhaphy, Hx Mastectomy, Hx Pacemaker, Hx Tonsillectomy Physical Exam - Vital signs Vitals: Temp Pulse Resp BP Pulse Ox 99.1 F 107 H 16 99/70 L 100 07/24/20 19:58 07/24/20 19:58 07/24/20 19:58 07/24/20 19:58 07/24/20 19:58 Interpretation: Hypotensive, Febrile - General General appearance: Alert, Anxious - HEENT Head: Normocephalic, Atraumatic Eyes: Normal Pupils: PERRL - Respiratory Respiratory status: No respiratory distress Chest status: Nontender Breath sounds: Normal Chest palpation: Normal - Cardiovascular Rhythm: Regular Heart sounds: Normal auscultation Murmur: No - Abdominal Inspection: Healed incision Distension: No distension Bowel sounds: Normal Tenderness: Nontender Organomegaly: No organomegaly - Back Back: Normal, Nontender - Extremities General upper extremity: Normal inspection, Nontender, Normal color, Normal ROM, Normal temperature General lower extremity: Normal inspection, Nontender, Normal color, Normal ROM, Normal temperature, Normal weight bearing. No: Vinny's sign - Neurological Neuro grossly intact: Yes Cognition: Normal Orientation: AAOx4 Markie Coma Scale Eye Opening: Spontaneous Markie Coma Scale Verbal: Oriented Haworth Coma Scale Motor: Obeys Commands Markie Coma Scale Total: 15 Speech: Normal Motor strength normal: LUE, RUE, LLE, RLE Sensory: Normal - Psychological Associated symptoms: Normal affect, Normal mood - Skin Skin Temperature: Warm Skin Moisture: Dry Skin Color: Normal Course - Vital Signs Vital signs: Temp Pulse Resp BP Pulse Ox 101.1 F H 88 20 107/69 99 07/25/20 03:05 07/25/20 03:05 07/25/20 03:05 07/25/20 03:05 07/25/20 03:05 - Laboratory Result Diagrams: 07/24/20 20:48 07/24/20 20:48 Laboratory results interpreted by me: 07/24/20 07/24/20 20:48 20:48 WBC 2.5 L Hgb 11.9 L Hct 34.9 L MCV 76 L MCH 25.8 L RDW 14.3 H Absolute Neuts (auto) 1.6 L Sodium 130.9 L Chloride 87 L BUN 22 H Est GFR (MDRD) Non-Af 58 L Glucose 138 H AST 43 H Lipase 456.8 H - Diagnostic Test Radiology reviewed: Reports reviewed - Both chest x-ray and CT scans were read as negative by radiologists. Critical Care Note - Critical Care Note Comments: Aretha DUMAS advised patient may need pre-medications prior to CT IV dye. For this reason Benadryl and Decadron were written IV. Discharge - Discharge Clinical Impression: Viral syndrome, COVID-19 virus test result unknown Fever Qualifiers: Fever type: unspecified Qualified Code(s): R50.9 - Fever, unspecified Pancreatitis Qualifiers: Chronicity: acute Pancreatitis type: unspecified pancreatitis type Acute pancreatitis complication: unspecified Qualified Code(s): K85.90 - Acute pancreatitis without necrosis or infection, unspecified Condition: Fair Disposition: HOME, SELF-CARE Instructions: Viral Syndrome ([facility]), Acetaminophen, Fever ([facility]) Additional Instructions: Follow-up with personal doctor in 1 to 2 days; return to ER symptoms worsen or become more severe. Try to avoid temperature extremes and take Tylenol and Motrin for fever. Stay quarantined until your COVID-19 test returns. Prescriptions: Dexamethasone [Decadron 4 Mg Tablet] 4 mg PO DAILY #5 tablet Levofloxacin [Levaquin 500 mg Tablet] 500 mg PO DAILY #7 tablet Referrals: NADYA CHESTER PA-C [Primary Care Provider] - Follow up as needed ED Sepsis - Sepsis Documentation Sepsis Patient: No - Vital Signs Interpretation: Hypotensive - Cardiovascular Peripheral Pulse Strength: Normal Rhythm: Regular Heart Sounds: Normal auscultation
[2020-07-25] MEDS ORDERED: NORMAL SALINE 1000 ML 1,000 ML IV ONE (01:42)
--- NOTE | 2020-07-25 02:23 | RADIOLOGY REPORT (SQ) ---
CLINICAL INDICATION: covid sx. TECHNIQUE: A single portable AP view was obtained of the chest at 0157 hours. COMPARISON: None. FINDINGS: The cardiomediastinal silhouette is normal. The lungs are grossly clear. No evidence of effusion or pneumothorax. The visualized bones are unremarkable. IMPRESSION: No evidence of active intrathoracic disease.
[2020-07-25] MEDS ORDERED: DIPHENHYDRAMINE HCL 50 MG/ML VIAL IV ONE (02:54)
[2020-07-25] MEDS ORDERED: DEXAMETHASONE SOD PHOS INJ 10 MG/1 ML VIAL IV ONE (02:54)
[2020-07-25] MEDS ORDERED: ACETAMINOPHEN 325 MG TABLET PO ONE (03:07)
[2020-07-25 03:21] LABS: A TYPE INFLUENZA AG NEGATIVE (NEGATIVE); B INFLUENZA AG NEGATIVE (NEGATIVE)
--- NOTE | 2020-07-25 04:27 | RADIOLOGY REPORT (SQ) ---
CT abdomen and pelvis with contrast on 07/25/2020 at 3:48 AM CLINICAL INDICATION: Colon resection six weeks ago, generalized abdominal pain TECHNIQUE: Multiple axial images are obtained throughout the abdomen and pelvis following the administration of IV contrast, 76 mL of Omnipaque 300contrast was administered intravenously without complication. This exam was performed according to our departmental dose-optimization program, which includes automated exposure control, adjustment of the mA and/or kV according to patient size and/or use of iterative reconstruction technique. Total DLP is 538.42 mGy*cm. COMPARISON: None FINDINGS: Abdomen: The lung bases are clear. A few small hepatic cysts are noted. The solid abdominal organs are otherwise unremarkable. There is no abdominal adenopathy. There is no free fluid or free air within the abdomen. The patient is status post right hemicolectomy with ileocolonic anastomosis in the left abdomen. The abdominal portion of the GI tract is otherwise unremarkable. Pelvis: There is no free fluid in the pelvis. The patient is status post hysterectomy. There is no pelvic adenopathy. Pelvic portion of the GI tract is otherwise unremarkable. No acute bony abnormality is noted. IMPRESSION: No acute abnormality.
[2020-07-25] MEDS ORDERED: FENTANYL CITRATE INJ/PF 100 MCG/2 ML AMPUL IV ONE (04:41)
[2020-07-25] MEDS ORDERED: HYDROCODONE/ACETAMINOPHEN 5-325 MG (6 TAB/ER DISP) PO PRN (04:41)
[2020-07-25] MEDS ORDERED: KETOROLAC TROMETHAMINE INJ/PF 30 MG/1 ML SDV IV ONE (04:41)
[2020-07-25] MEDS ORDERED: LEVOFLOXACIN 500 MG TABLET PO ONE (04:48)
[2020-07-25 05:48] VITALS: BP 97/62
== END 2020-07-25 06:02 | disposition home or self-care (01) ==
LOC: ER 19:27
DX: K85.90 Acute pancreatitis without necrosis or infection, unspecified (principal); R50.9 Fever, unspecified; B34.9 Viral infection, unspecified; G89.18 Other acute postprocedural pain; Z20.828 Contact with and (suspected) exposure to other viral communicable diseases
CPT/HCPCS: 99285; 96361; 96374; 96375; 36415; 87070; 87880; 83605; 83690; 85025; 87635; 80053; 81001; 86701; 87804; 71045; 74177; J1200; J1885; J7030; J1100; C9803

== ENCOUNTER → 2020-09-24 | Outpatient (CLI) | payer OTHER ==
--- NOTE | 2020-09-24 10:33 | WOMENS IMAGING REPORT ---
EXAM DESCRIPTION: BILAT SCREENING MAMMO W/CAD IMAGES COMPLETED DATE/TIME: 09/24/2020 10:02 am REASON FOR STUDY: Z12.31 ENCNTR SCREEN MAMMOGRAM FOR MALIGNANT NEOPLASM OF BREAST Z12.31 ENCNTR SCR EEN MAMMOGRAM FOR MALIGNANT NEOPLASM OF MANDY COMPARISON: 07/18/2019 and 12/02/2015. EXAM PARAMETERS: Standard craniocaudal and mediolateral oblique views of each breast recorded using digital acquisition. Read with the assistance of CAD. .[facility] - Stratigraphy Teacher Version 9.2 LIMITATIONS: None. FINDINGS: Findings present which are benign by mammographic criteria. No suspicious masses, calcifi cations or architectural distortion. Pertinent benign findings: Stable calcifications. Benign mammographic findings may include one or more of the following: Smooth masses, popcorn/rim/co arse calcifications, asymmetries, post-procedure changes, and lesions with long-standing stability. IMPRESSION: BENIGN MAMMOGRAPHIC FINDINGS. BIRADS 2 BREAST DENSITY: c. The breasts are heterogeneously dense, which may obscure small masses. BIRAD: ASSESSMENT: 2 BENIGN FINDING(S) RECOMMENDATION: ROUTINE SCREENING COMMENT: The patient has been notified of the results by letter per [place] requirements. Additional no tification policies are in place for contacting patient with suspicious or incomplete findings. Quality ID #[id number]: [employer] recommends an annual screening mammogram for women aged 40 years or over. This facility utilizes a reminder system to ensure that all patients receive reminder letters, and/or direct phone calls for appointments. This includes reminders for routine scr eening mammograms, diagnostic mammograms, or other Breast Imaging Interventions when appropriate. Th is patient will be placed in the appropriate reminder system. TECHNICAL DOCUMENTATION: FINDING NUMBER: (1) ASSESSMENT: (1) JOB ID: [id number] 2010 [employer]- All Rights Reserved Reading location - IP/workstation name: [facility]-
== END ==
LOC: WI 09:04
PROVIDERS: ATTEND Physician Assistant
DX: Z12.31 Encounter for screening mammogram for malignant neoplasm of breast (principal)
CPT/HCPCS: 77067